=== PATIENT | female | born 1950 | race Caucasian/White ===

== ENCOUNTER → 2022-09-21 10:10 | Outpatient (CLI) | payer MEDICARE, OTHER, SELFPAY ==
[2022-09-21 10:40] LABS: Add Manual Diff / Slide Review NO; Basophils Absolute Auto 100 /uL (0-100); Basophils Percent Auto 1.1 % (0-2); Eosinophils Absolute Auto 200 /uL (0-450); Eosinophils Percent Auto 3.6 % (2-4); Hematocrit 36.1 % (36-46); Hemoglobin 12.4 g/dL (12.0-16.0); Lymphocytes Absolute Auto 2000 /uL (1100-4500); Lymphocytes Percent Auto 33.9 % (25-40); Mean Corpuscular HGB Conc 34.4 % (30-36); Mean Corpuscular Hemoglobin 30.8 PG (26-34); Mean Corpuscular Volume 89.4 fL (80-100); Monocytes Absolute Auto 500 /uL (0-900); Monocytes Percent Auto 7.8 % (3-14); Neutrophils Absolute Auto 3200 /uL (1500-7000); Neutrophils Percent Auto 53.6 % (50-75); Platelet Count 260 X10^3/uL (150-400); Red Blood Cell Count 4.04 X10^6/uL (4.0-5.2); Red Cell Distribution Width 13.4 % (11.6-14.8)
[2022-09-21 11:18] LABS: BUN Creatinine Ratio 22.8 (6-22); Blood Urea Nitrogen 13 mg/dL (7-17); Calcium 8.8 mg/dL (8.4-10.2); Carbon Dioxide 32 mmol/L (22-32); Chloride 104 mmol/L (98-107); Estimated Glomerular Filt Rate > 60 mL/min (>60); Glucose 100 mg/dL (80-110); HEMOLYSIS < 15 (0-50); Potassium 4.9 mmol/L (3.4-5.1); Sodium 138 mmol/L (137-145)
== END ==
PROVIDERS: PCP Physician Assistant; Referring Provider Orthopaedic Surgery Foot and Ankle Surgery; Visit Provider Orthopaedic Surgery Foot and Ankle Surgery
DX: Z01.812 Encounter for preprocedural laboratory examination (principal); Z01.818 Encounter for other preprocedural examination
CPT/HCPCS: 36415; 80048; 85025; 93005; 93010

== ENCOUNTER 2022-10-21 06:34 | Day surgery (SDC) | payer MEDICARE, OTHER, SELFPAY ==
[2022-10-06 11:39] VITALS: BMI 40.8
[2022-10-06 12:31] VITALS: BMI 40.8
[2022-10-21 06:55] VITALS: BP 153/75; PULSE 64; RESP 18; TEMP 36.5; O2SAT 100; BMI 40.8
[2022-10-21] MEDS: LACTATED RINGERS 1,000 ML 42 ML IV (07:01)
--- NOTE | 2022-10-21 07:02 | PM.PREOP ---
Pre-operative Note Interval Note History & Physical reviewed/Exam performed by Physician: Yes Changes to H&P: No
[2022-10-21] MEDS: MIDAZOLAM 2 MG/2 ML VIAL IV (07:31)
--- NOTE | 2022-10-21 07:41 | SUR.PREOP ---
Block start time [0735] . Monitoring initiated and maintained throughout procedure. Oxygen and medications given per anesthesiologist instructions. Patient remained stable throughout procedure, no adverse reactions noted. Block end time [0741]. BP 149/77, HR 74; oxygen saturation 100% on 2 liters.
[2022-10-21] MEDS: CEFAZOLIN 2 GM/100 ML PREMIX 100 ML IV (08:05)
--- NOTE | 2022-10-21 08:21 | SUR.OPER ---
Supine on padded OR bed, head on pillow, arms secured on padded arm boards at <90 degrees abduction, legs uncrossed, operative leg bumped, bump under operative side hip, gel pad under nonoperative heel, safety belt at abdomen, tape over blanket over non-operative leg.
[2022-10-21] MEDS: BUPIVACAINE 0.25% W/ EPI 30 ML VIAL 60 ML INJ (08:35)
--- NOTE | 2022-10-21 08:45 | SUR.OPER ---
Utilized Arthrex irrigating karri and TPS throughout surgical procedure.
[2022-10-21] MEDS: THROMBIN (RECOMBINANT) 5,000 UNIT VIAL 5000 UNIT TOP (09:20)
--- NOTE | 2022-10-21 10:45 | DI.RAD.S_ITS ---
PROCEDURE: XR FOOT LT MIN 3V INDICATIONS: LEFT FLAT FOOT RECONSTRUCTION TECHNIQUE: 4 low resolution intraoperative fluoroscopic spot films of the left foot were obtained COMPARISON: None. FINDINGS: Intraoperative spot films show instrumented calcaneal osteotomy and 1st and 2nd instrumented tarsometatarsal arthrodesis. Hardware in good position. IMPRESSION: Fluoroscopic guidance Approved by: Dillon Mills M.D. on 10/21/2022 at 11:13
[2022-10-21 11:24] VITALS: BP 149/87; PULSE 88; RESP 14; TEMP 36.6; O2SAT 93
[2022-10-21 11:29] VITALS: BP 117/77; PULSE 67; RESP 12; O2SAT 98
[2022-10-21 11:34] VITALS: BP 130/69; PULSE 67; RESP 12; O2SAT 97
[2022-10-21 11:45] VITALS: BP 134/72; PULSE 70; RESP 15; O2SAT 97
[2022-10-21] MEDS: OXYCODONE/ACETAMINOPHEN 5/325 TABLET 1 TAB PO (11:47)
--- NOTE | 2022-10-21 11:53 | P.OP_ITS ---
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 Tarsometatarsal fusion multiple CPT code 98493 1st and 2nd tarsometatarsal fusion 2. Flexor digitorum longus transfer to the navicular CPT code 31057 3. Medial displacement calcaneal osteotomy CPT code 23602 4. Gastroc recession CPT code 54524 + separate incision 59 Same procedure as scheduled: Yes Indications: Patient is a 72-year-old female with left flexible flatfoot deformity that is failed non operative treatment with bracing and orthotics. She is been indicated for surgical correction. She also has hypermobility of the 1st ray and 2nd TMT arthritis. And a gastroc contracture. The risks and benefits of the procedure have been discussed with the patient and given the opportunity to ask questions. The risks of surgery include but are not limited to infection, malunion, nonunion, persistence of pain, damage to nerves and blood vessels, posttraumatic arthritis, DVT, PE, cardiopulmonary complications and . The patient expressed a thorough understanding of the risks and benefits of surgery and has elected to proceed. Consent was signed in the office today. During the operation, the services of a physician operations assistant were medically indicated and necessary to provide the exposure of the operative site for the surgical procedure and to maintain the limb in a proper position to carry out the operation safely and efficiently. Without a qualified assistant professor of marine biology being present this would extended the operative procedure and made the procedure technically more difficult to perform. Surgeon: Magdalena Duenas Form Designer: Jarrod Delgado Anesthesia Type: General, Peripheral nerve block and Local Operative Notes Findings: Flexible flatfoot hypermobility 1st ray 2nd TMT arthritis with dorsal bossing ganglion cyst Gastroc contracture Closure Type: primary Specimen(s): none sent Prosthetic devices, grafts, tissues, transplants, or devices: Arthrex 6.7 cannulated screws x 2 Arthrex 4.75 bio tenodesis screw Arthrex 3-0 T-plate, with nonlocking and locking screws--from the Arthrex comprehensive system Arthrex regular plantar Lapidus plate with nonlocking and locking screws Estimated Blood Loss (mL): 30 Blood products transfused: none Tourniquet time (min): 120 Procedure in detail: Flexible flatfoot reconstruction with tarsometatarsal fusions In the preoperative area the patient seen identified and the operative site marked. Consent was confirmed. Patient was brought back to the operating room and placed on the operating table and given an anesthetic. Following successful level of anesthesia the patient was appropriately padded positioned secured to the table. The surgical leg was then prepped and draped in the standard sterile fashion. A formal time-out procedure was performed confirming the patient's side site of surgery administration of appropriate preoperative antibiotics. The leg was examined the patient had a gastroc contracture. They had 0? of dorsiflexion with the knee fully extended and 20? of dorsiflexion with the knee in a flexed position therefore a gastroc lengthening was felt to be necessary. Once we made that decision the Esmarch bandage was utilized to exsanguinate the limb and the tourniquet was raised to the thigh to 250 mm Hg after about 45 minutes this became a venous tourniquet therefore was deflated exsanguination was completed again and the tourniquet was reinflated to 300 mm of mercury for the remainder of the tourniquet time. Gastroc lengthening: An incision was made at the aponeurosis of the gastroc and soleus tendons of the distal 3rd of the calf. Dissection was carried through the skin subcutaneous tissue. The lesser saphenous and sural nerves were protected. The fascia was opened and the tendon isolated from the medial to lateral portions and incised and lengthened proximally 2.5 cm. There was a nice divide between the gastroc and soleus fascia and an isolated gastroc fascia release. The incision was closed with 4-0 Monocryl and 3-0 nylon in the skin. Medializing calcaneus osteotomy: Incision was made along the lateral border of the calcaneus this was a small minimally invasive incision after the landmarks were marked out under fluoroscopy. The Arthrex 3 x 20 mm Janny bur was used to penetrate through the calcaneus tuberosity to the medial calcaneus and then retracted approximately half way. The calcaneus was cut in the standard quadrant fashion 1st with the near superior quadrant then the far superior quadrant then the inferior near quadrant and the far inferior quadrant. Once the osteotomy was mobilized this was shifted proximally 1 cm. This was percutaneously fixed with 2x 6.7 cannulated screws that were appropriately countersunk. This provided solid fixation. Excess bone was trimmed and tamped down along the lateral wall. Appropriate fixation was confirmed on multiplanar fluoroscopy FDL tendon transfer and posterior tibialis tendon debridement: This point the leg was externally rotated and the medial incision was made which began initially at the tip of the medial malleolus and extended along the medial border of the 1st metatarsal. The incision was extended more proximal to get a good exposure of the posterior tibialis tendon. Dissection was carried through the skin and subcutaneous tissue and retinaculum. The posterior tibialis tendon was freed up in a semi tenosynovectomy performed. Nonviable tendon was removed and trimmed back to normal size. Dissection was then carried distal and the abductor hallucis was reflected inferiorly. The FDL and FHL were visualized at the knot of Damien. The FDL was harvested as long as possible. The FDL harvest was then fashioned with the FiberLoop and passed through a 5 mm Sizer. Dissection was then completed dorsal and plantar to the navicular. A wire was passed from dorsal to plantar in the navicular aiming from medial to lateral and checked on C-arm to be central in the navicular. This was then overdrilled to create a 5 mm tunnel. We then brought the FDL tendon through the hole and out the lateral foot and the repair was tensioned with a 4.75 bio tenodesis screw. The posterior tibialis tendon was then repaired with the same tension as the FDL transfer-with the proximal tenodesis. Distal tendinotic posterior tibialis tendon was excised. Tarsometatarsal fusion: Attention was then turned to the 1st TMT fusion. Dissection was taken distally exposing the 1st tarsometatarsal joint this was hyper lax. The joint was exposed the cartilage was denuded back to good bleeding cancellous bone and the joint was reduced eliminating the plantar gapping and a plantar flexion position was applied. This was provisionally pinned. A separate dorsal incision with the 2nd metatarsal was taken down through the skin subcutaneous tissue. The 2nd TMT joint was prepped using the osteotomes and bur. This was also pinned provisionally reducing it. Once this was completed the 1st and 2nd tarsometatarsals were fixed permanently with internal hardware. First tarsometatarsal joint was fused with a regular plantar Lapidus plate this provided excellent compression bony apposition and plantar flexion fusion position to correct residual foot supination. Second TMT was fixed with a 3-0 T plate from the Arthrex comprehensive system. Once this was completed all the wounds were closed with 2-0 PDS in the flexor sheath, 2-0 Vicryl deep subcutaneous closure with 4-0 Monocryl in the skin with 3-0 and 4-0 nylon suture. A sterile dressing and bulky Middleton style splint were applied and the patient was taken to the recovery room in good condition. All counts were correct. Complications: none Post-operative Condition: stable Disposition: PACU Plan for aftercare: Elevate above the heart as much as possible 1st 2 weeks. Nonweightbearing for 6 weeks. Will be changed from splint to boot and arch support at 1st postop versus cast. Will return at 6 weeks postop for initiation of progressive weight-bearing in a tall walking boot with arch support. Aspirin for DVT prophylaxis.
[2022-10-21 12:00] VITALS: BP 126/73; PULSE 66; RESP 16; TEMP 36.8; O2SAT 100
== END 2022-10-21 12:22 | disposition home or self-care (01) ==
PROVIDERS: PCP Physician Assistant; Referring Provider Orthopaedic Surgery Foot and Ankle Surgery; Visit Provider Orthopaedic Surgery Foot and Ankle Surgery
PROC: (CPT 28735; principal; 2022-10-21 07:45)
PROC: (CPT 27691; 2022-10-21 07:45)
PROC: (CPT 28730; 2022-10-21 07:45)
DX: M21.41 Flat foot [pes planus] (acquired), right foot (principal); M76.821 Posterior tibial tendinitis, right leg; M19.079 Primary osteoarthritis, unspecified ankle and foot; M62.89 Other specified disorders of muscle; M67.472 Ganglion, left ankle and foot; E66.9 Obesity, unspecified; Z68.41 Body mass index [BMI] 40.0-44.9, adult; G89.18 Other acute postprocedural pain
CPT/HCPCS: 28730; 27691; 27687; 28300; 64450; 73630; 76000; C1713; J0690; J1885; J2250; J2405; J2704; J3010

== ENCOUNTER 2022-12-17 12:42 | Day surgery (SDC) | payer MEDICARE, OTHER, SELFPAY ==
[2022-12-15 14:44] VITALS: BMI 40.8
--- NOTE | 2022-12-17 | PATH_ITS ---
[facility] Accession Number: [id number] No. of containers..01 Tissue . 01 Material submitted: . foot - LEFT FOOT DEEP WOUND . 01 Diagnosis: Specimen Designated Left Foot Deep Wound, Biopsy: Fibrotendinous tissue with reactive and degenerative changes, and associated fat necrosis. See comment. MRV 12/24/2022 1710 Local . 01 Comment: The findings are non-specific. . 01 Electronically signed: . Sulema Block MD, Pathologist NPI- [id number] . 01 Gross description: . The specimen is received in formalin labeled with the patient's name, , and left foot, and consists of multiple le to brown soft tissue fragments with no grossly identified skin, aggregating to 1.7 x 0.6 x 0.2 cm. Filtered and submitted entirely in cassette A1. ([id number]) /FRR 12/18/2022 1853 Local . 01 Pathologist provided ICD-10: T81.30XA . 01 CPT . 352174 Specimen Comment: A courtesy copy of this report has been sent to [phone] Performed at: 01 [facility] [address] [place] [address], [place], [place] [id number] MD Jacek Ny MD Phone: [phone]
[2022-12-17] MEDS: LACTATED RINGERS 1,000 ML 42 ML IV (13:06)
[2022-12-17 13:15] VITALS: BMI 40.3
[2022-12-17] MEDS: LACTATED RINGERS 1,000 ML 120 ML IV (13:40)
[2022-12-17 13:59] VITALS: BP 130/72; PULSE 69; RESP 17; TEMP 37.1; O2SAT 99
--- NOTE | 2022-12-17 15:25 | PM.PREOP ---
Pre-operative Note Interval Note History & Physical reviewed/Exam performed by Physician: Yes Changes to H&P: No
[2022-12-17] MEDS: CEFAZOLIN 2 GM/100 ML PREMIX 100 ML IV (15:50)
[2022-12-17 16:17] VITALS: BP 140/77; PULSE 81; RESP 13; TEMP 36.3; O2SAT 99
[2022-12-17 16:22] VITALS: BP 148/77; PULSE 97; RESP 12; O2SAT 97
[2022-12-17 16:27] VITALS: BP 162/73; PULSE 77; RESP 14; O2SAT 97
[2022-12-17 16:37] VITALS: BP 143/69; PULSE 75; RESP 12; TEMP 36.3; O2SAT 95
--- NOTE | 2022-12-17 17:12 | P.OP_ITS ---
Operative Date/Time/Diagnoses Date of procedure: 12/17/22 Time of procedure: 15:10 Pre-op diagnosis: Wound dehiscence left foot, surgical, eschar slough Post-op diagnosis: same Procedure & Clinicians Procedure: Debridement of skin and subcutaneous tissue left foot wound dehiscence, CPT code 90773, left foot Same procedure as scheduled: Yes Indications: The patient is a 72-year-old female who underwent a flatfoot and midfoot fusion correction 10/21/2022. She had been progressing well. She did have an area of eschar at her distal incision medially. On return to clinic the eschar has sloughed off and the patient had a near full-thickness wound proximally 1 x 2 cm as well as a smaller areas of eschar slough more proximally. Initial dressings changes had been tried by the patient without significant improvement. Due to the depth and nature of the wound the patient was indicated for formal irrigation debridement and closure to avoid prolonged wound care and concern for deeper infection and seeding the hardware. The risks and benefits of the procedure have been discussed with the patient and given the opportunity to ask questions. The risks of surgery include but are not limited to infection, malunion, nonunion, persistence of pain, damage to nerves and blood vessels, posttraumatic arthritis, DVT, PE, cardiopulmonary comp lications and . The patient expressed a thorough understanding of the risks and benefits of surgery and has elected to proceed. Consent was signed in the office today. Surgeon: Magdalena Duenas Click Yes if Unassisted: Yes Anesthesia Type: General and Local Operative Notes Findings: Surgical wound dehiscence after eschar slough left foot medial wound area involving the distal 5-6 cm of the medial incision with an open area 2 x 1 distally and then 3 more smaller areas of eschar slough more proximally. No fluctuance. The areas of tissue loss were ellipsed sized and excised. Below the deep fascia was intact and the open wound did not go to the level of bone or track to the hardware. There was no gross purulence. The area was irrigated thoroughly and then closed in a layered fashion with 3-0 PDS and 2-0 and 3-0 nylon suture Closure Type: primary Specimen(s): other (Deep tissue was sent for culture) Estimated Blood Loss (mL): 2 Blood products transfused: none Tourniquet time (min): 7 Procedure in detail: Patient was seen in the preoperative area the site of surgery was marked informed consent confirmed. The patient was brought back to the operating room by the anesthesia team positioned supine on operative table. General anesthetic was administered. A thigh tourniquet was placed on the left lower extremity. The left foot was prepped and draped in the standard sterile fashion. A formal time-out procedure was performed confirming the patient's side and site of surgery administration of appropriate preoperative antibiotic. All were in agreement. Attention was turned to the left foot the distal 5-6 cm of the medial incision were then Ellipta sized and the skin and area of wound and dehiscence was excised. Deep tissues were noted to be intact. The subcutaneous tissues that were involved were debrided completing a skin and subcutaneous debridement. The deep tissues were probed thoroughly found no violations or involvement of the bone or hardware. This was then irrigated with bulb syringe saline thoroughly. Gloves and drapes were changed to clean as well as clean instruments then the wound was closed with 3-0 PDS and 2-0 and 3-0 nylon. Tourniquet was released prior to final closure and hemostasis achieved. And 10cc of local anesthetic was infiltrated for postoperative pain control. Xeroform, gauze, Webril and an Shay wrap were placed. The patient was then awoken from anesthesia and taken to the recovery room in good condition there were no immediate complications with the procedure. All counts were correct. Complications: none Post-operative Condition: stable Disposition: PACU Plan for aftercare: They will start progressive weight-bearing 25% each week in the boot with assist dao devices. Elevate at heart level or above as much as possible to aid with swelling. Keep dressing clean dry and intact. Sutures remain in place 3-4 weeks or more if required. Follow up in 2 weeks for a wound check. Continue to finish her Keflex prescription. Based on culture growth these may be tailored or change to a different antibiotic if necessary.
== END 2022-12-17 16:56 | disposition home or self-care (01) ==
PROVIDERS: PCP Physician Assistant; Referring Provider Orthopaedic Surgery Foot and Ankle Surgery; Visit Provider Orthopaedic Surgery Foot and Ankle Surgery
PROC: (CPT 12042; principal; 2022-12-17 14:15)
DX: T81.30XA Disruption of wound, unspecified, initial encounter (principal)
CPT/HCPCS: 12042; 87070; 87075; 87205; J0690; J1100; J2250; J2405; J2704; J3010